=== PATIENT | male | born 1955 | race Caucasian/White ===

== ENCOUNTER 2019-09-12 06:00 | Day surgery (SDC) | payer MEDICARE ==
[2019-09-11 13:36] VITALS: BMI 25.0
--- NOTE | 2019-09-11 15:08 | HP ---
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 He has developed a right inguinal hernia over the last few weeks. It is bothersome to him. He has had an open left inguinal hernia repair many years ago. ALLERGIES: NONE. TOBACCO: None. ALCOHOL: Rarely. MEDICATIONS: 1. Crestor. 2. Amlodipine. 3. Carvedilol. 4. Flomax. 5. Finasteride. PAST SURGICAL HISTORY: Appendectomy, left inguinal hernia repair in [place], knee surgery bilaterally. REVIEW OF SYSTEMS: Ten-point noncontributory. PHYSICAL EXAMINATION: VITAL SIGNS: Weight 206 pounds, height 75 inches, blood pressure 142/90, pulse 53, temperature 97.5 degrees. HEAD, EARS, EYES, NOSE, AND THROAT: Unremarkable. LUNGS: Clear to auscultation. CARDIAC: Regular rate and rhythm without murmur or gallop. ABDOMEN: Soft, nontender, no masses. Scar in left groin from previous hernia repair. Testicles normal. Right groin hernia on standing, enlarged on Valsalva. EXTREMITIES: Unremarkable. ASSESSMENT AND PLAN: Right inguinal hernia. Recommend robot laparoscopic mesh repair outpatient. He understands risks of infection, bleeding, reoperation, testicular injury, recurrence of the hernia and consents. Job ID: [id number]
[2019-09-12] MEDS ORDERED: Famotidine/PF 20 mg/2ml Vial ONE (06:16)
[2019-09-12] MEDS ORDERED: Fentanyl 100 MCG/2 ML VIAL ONE ×2 (06:16→06:17)
[2019-09-12] MEDS ORDERED: Gabapentin 300 MG CAP ONE (06:25)
[2019-09-12] MEDS ORDERED: Acetaminophen 500 MG TAB ONE (06:25)
[2019-09-12] MEDS ORDERED: Ketorolac Tromethamine 30 MG/ML VIAL ONE ×2 (06:34→10:11)
[2019-09-12] MEDS ORDERED: Lidocaine 1% w/Epinephrine 1:100K 20 ML VIAL ONE (06:57)
[2019-09-12] MEDS ORDERED: Bupivacaine PF 0.5% 30 ML VIAL ONE (06:57)
[2019-09-12 07:07] LABS: #Basophils 0.1 thou/uL (0.0-0.2); #Eosinphils 0.2 thou/uL (0.0-0.7); #Monocytes 0.7 thou/uL (0.11-0.59); #Neutrophils 4.1 thou/uL (1.40-6.50); %Basophils 0.8 % (0.0-1.0); %Eosinophils 2.2 % (0.0-10.0); %Lymphocytes 28.2 % (21.0-51.0); %Monocytes 10.5 % (0.0-10.0); %Neutrophils 58.2 % (42.0-75.0); Hemoglobin 14.9 g/dL (14.0-18.0); Mean Corpuscular HGB CONC 34.5 g/dL (32.0-36.0); Mean Corpuscular Hemoglobin 30.1 pg (27.0-31.0); Mean Corpuscular Volume 87.1 fL (78.0-98.0); Mean Platelet Volume 8.8 fL (7.4-10.4); Platelet Count 210 thou/uL (130-400); RBC Distribution Width 12.3 % (11.5-14.5); Red Blood Cell (RBC) Count 4.95 mill/uL (4.70-6.10)
[2019-09-12 07:13] LABS: Anion Gap 11 mmol/L (10-20); BUN (Urea Nitrogen) 15 mg/dL (8.4-25.7); Calc. Creatinine Clearance 102 mL/min (70-130); Calcium 9.2 mg/dL (7.8-10.44); Carbon Dioxide 26 mmol/L (23-31); Chloride 109 mmol/L (98-107); Estimated GFR-MDRD 82; Glucose 111 mg/dL (80-115); Potassium 3.7 mmol/L (3.5-5.1); Sodium 142 mmol/L (136-145)
[2019-09-12] MEDS ORDERED: Lidocaine 1% PF 5 ML VIAL ONE (10:11)
[2019-09-12] MEDS ORDERED: Glycopyrrolate 0.2 MG/ML 5 ML SYRINGE ONE (10:11)
[2019-09-12] MEDS ORDERED: PROPOFOL 200 MG/20 ML VIAL ONE (10:11)
[2019-09-12] MEDS ORDERED: Metoclopramide HCl 10 MG/2 ML VIAL ONE (10:11)
[2019-09-12] MEDS ORDERED: Ondansetron PF 4 MG/2 ML Vial ONE (10:11)
[2019-09-12] MEDS ORDERED: EPHEDRINE 25 MG/5 ML SYRINGE ONE (10:11)
[2019-09-12] MEDS ORDERED: Rocuronium Bromide 10 MG/ML (10ML VIAL) ONE (10:11)
[2019-09-12] MEDS ORDERED: Dexamethasone 20 MG/5 ML VIAL ONE (10:11)
--- NOTE | 2019-09-12 10:44 | OP ---
DATE OF PROCEDURE: 09/12/2019 PREOPERATIVE DIAGNOSIS: Right inguinal hernia, indirect. POSTOPERATIVE DIAGNOSIS: Right inguinal hernia, indirect. PROCEDURE PERFORMED: Laparoscopic robotic repair of sliding right inguinal hernia using mesh Bard 3DMax large, right. ANESTHESIA: General, local with 0.5% Marcaine 30 mL, mixed with 1% Xylocaine with epinephrine 20 mL. DESCRIPTION OF PROCEDURE: The patient was taken to the operating room where under slight Trendelenburg positioning, Logan catheter was placed at the beginning of procedure and removed at the end. Abdomen was prepared with ChloraPrep and draped in routine fashion. Local anesthetic was infiltrated in the skin and subcutaneous tissue about the operative site. Left paramedian supraumbilical incision was made. Pneumoperitoneum to 15 mmHg was obtained with a Veress needle, and this was replaced with an 11 port. Right lateral abdomen and left lateral abdominal incision made and 8 mm port was placed under laparoscopic visualization. The robot was docked, positioned, and robotic inguinal hernia repair undertaken. There were adhesions from prior open appendectomy in the right lower quadrant incision. These omental adhesions were taken down from the abdominal wall. Peritoneal flap incised, dissected free from the midline to anterior superior iliac spine laterally right. Once flap was dissected free, the Scooby's ligament identified. Hernia sac dissected free from the cord structures for least 8 cm. A 3DMax Bard large mesh inserted, properly oriented, secured to Scooby ligament with 2-0 Vicryl and the anterior abdominal wall to the patient's right of the inferior epigastric vessels with 2-0 Vicryl. Good hemostasis noted. Good hernia repair appreciated. Peritoneal flap closed with continuous suture of #3-0 Stratafix. Pneumoperitoneum reduced. All instruments removed. A supraumbilical fascia anterior approximated with 0 Vicryl UR needle and skin incision with interrupted subdermal 4-0 Monocryl and [place] glue applied. Job ID: [id number]
--- NOTE | 2019-09-13 08:28 | EKG ---
Test Reason : PREOP Blood Pressure : / mmHG Vent. Rate : 055 BPM Atrial Rate : 055 BPM P-R Int : 172 ms QRS Dur : 112 ms QT Int : 476 ms P-R-T Axes : 038 055 044 degrees QTc Int : 455 ms Sinus bradycardia Otherwise normal ECG No previous ECGs available Confirmed by DR. Julieth CONTRERAS ([id number]) on 09/13/2019 8:27:42 AM Referred By: ASHWIN Confirmed By:DR. Julieth CONTRERAS
== END 2019-09-12 10:42 | disposition home or self-care (01) ==
LOC: SDC 06:00
PROVIDERS: ATTEND Specialist
PROC: 0YU54JZ Supplement Right Inguinal Region with Synthetic Substitute, Percutaneous Endoscopic Approach (ICD-10-PCS; principal; 2019-09-12)
DX: K40.90 Unilateral inguinal hernia, without obstruction or gangrene, not specified as recurrent (principal); I10 Essential (primary) hypertension; Z79.82 Long term (current) use of aspirin; Z79.899 Other long term (current) drug therapy; Z98.890 Other specified postprocedural states
CPT/HCPCS: 49650; 80048; 85025; 93005; C1781; 93010; J0690; J1100; J1885; J2001; J2405; J2704; J2765; J3010; S0020; S0028

== ENCOUNTER 2021-03-09 08:11 | Outpatient (CLI) | payer MEDICARE ==
[2021-03-09 10:16] LABS: Hemoglobin 14.1 g/dL (13.5-17.5); Mean Corpuscular HGB CONC 33.9 g/dL (32.0-36.0); Mean Corpuscular Hemoglobin 29.5 pg (27.0-33.0); Mean Platelet Volume 11.2 fl (7.4-10.4); Platelet Count 209 10x3/uL (150-450); RBC Distribution Width 13.1 % (11.5-14.5); Red Blood Cell (RBC) Count 4.78 10x6/uL (4.32-5.72); White Blood Cell (WBC) Count 6.7 10x3/uL (3.5-10.5)
[2021-03-09 10:25] LABS: Bilirubin Neg (Negative); Blood, Urine 10 (Negative); Clarity Clear (Clear); Glucose, Urine (Dipstick) Normal (Negative); Ketone, Urine Negative (Negative); Leukocyte Negative (Negative); Nitrite Negative (Negative); Protein, Urine (Dipstick) 15 mg/dl (Neg-Trace); Specific Gravity, Urine 1.025 (1.002-1.036); Urobilinogen Normal mg/dL (Less than 2)
[2021-03-09 10:32] LABS: PTT 25.6 sec (22.0-33.0); Prothrombin Time 10.9 sec (9.5-12.1)
[2021-03-09 10:47] LABS: Anion Gap 12 mmol/L (10-20); BUN (Urea Nitrogen) 21 mg/dL (8.4-25.7); Calc. Creatinine Clearance 0 mL/min (70-130); Calcium 9.6 mg/dL (7.8-10.44); Carbon Dioxide 25 mmol/L (23-31); Chloride 106 mmol/L (98-107); Glucose 112 mg/dL (80-115); Potassium 4.2 mmol/L (3.5-5.1); Sodium 139 mmol/L (136-145)
[2021-03-09 11:54] LABS: Bacteria/HPF Rare-Few HPF (None Seen); Mucous/LPF 2+ LPF (<2+); Squamous Epithelial None Seen HPF (0-3); WBC/HPF 0-3 HPF (0-3)
[2021-03-09 20:01] LABS: SARS-CoV-2 PCR by NAA Not Detected (NotDetected)
== END 2021-03-09 08:12 | disposition home or self-care (01) ==
LOC: LABBT 08:11
PROVIDERS: ATTEND Urology
DX: Z01.812 Encounter for preprocedural laboratory examination (principal); N40.0 Benign prostatic hyperplasia without lower urinary tract symptoms; Z20.822 Contact with and (suspected) exposure to COVID-19
CPT/HCPCS: 80048; 81001; 85027; 85610; 85730; 87086; U0003; U0005

== ENCOUNTER 2021-03-14 02:12 | Emergency (ER) | payer MEDICARE ==
[2021-03-14 03:47] LABS: Bilirubin Negative (Negative); Blood, Urine 3+ (Negative); Clarity Extra Turbid (Clear); Glucose, Urine (Dipstick) Normal (Negative); Ketone, Urine Negative (Negative); Leukocyte 75 Leu/uL (Negative); Nitrite Negative (Negative); Protein, Urine (Dipstick) 70 mg/dL (Neg-Trace); RBC/HPF Greater than 50 HPF (0-3); Specific Gravity, Urine 1.006 (1.002-1.036); Squamous Epithelial None Seen HPF (0-3); Urobilinogen Normal mg/dL (Less than 2); pH, Urine 7.5 (5.0-9.0)
[2021-03-14 03:58] LABS: Bacteria/HPF None Seen HPF (None Seen)
== END 2021-03-14 05:14 | disposition home or self-care (01) ==
LOC: ERS 02:12
DX: N40.1 Benign prostatic hyperplasia with lower urinary tract symptoms (principal); R33.8 Other retention of urine; R06.82 Tachypnea, not elsewhere classified; I10 Essential (primary) hypertension; E78.00 Pure hypercholesterolemia, unspecified
CPT/HCPCS: 51702; 81003; 81015; 87086

== ENCOUNTER 2021-03-18 03:26 | Emergency (ER) | payer MEDICARE ==
[2021-03-18 03:53] LABS: Bacteria/HPF None Seen HPF (None Seen); Bilirubin Negative (Negative); Blood, Urine 1+ (Negative); Clarity Clear (Clear); Glucose, Urine (Dipstick) Normal (Negative); Ketone, Urine Negative (Negative); Leukocyte Negative Leu/uL (Negative); Nitrite Negative (Negative); Protein, Urine (Dipstick) Negative (Neg-Trace); RBC/HPF 21-50 HPF (0-3); Specific Gravity, Urine 1.006 (1.002-1.036); Squamous Epithelial None Seen HPF (0-3); Urobilinogen Normal mg/dL (Less than 2); WBC/HPF 0-3 HPF (0-3); pH, Urine 7.5 (5.0-9.0)
== END 2021-03-18 05:11 | disposition left against medical advice (07) ==
LOC: ERS 03:26
DX: Z53.21 Procedure and treatment not carried out due to patient leaving prior to being seen by health care provider (principal)
CPT/HCPCS: 81003; 81015

== ENCOUNTER 2022-08-11 09:03 | Outpatient (CLI) | payer MEDICARE, OTHER | END 2022-08-11 09:04 | disposition home or self-care (01) | LOC: TBSIIMAG 09:03 | PROVIDERS: ATTEND Urology | DX: N40.0 Benign prostatic hyperplasia without lower urinary tract symptoms (principal); R97.20 Elevated prostate specific antigen [PSA]; Z80.42 Family history of malignant neoplasm of prostate | CPT/HCPCS: 72197 ==

== ENCOUNTER 2023-01-12 07:26 | Outpatient (CLI) | payer MEDICARE ==
[2023-01-12] MEDS ORDERED: Iopamidol 370 76% 100 ML VIAL ONE (12:45)
== END 2023-01-12 07:27 | disposition home or self-care (01) ==
LOC: BICCT 07:26
PROVIDERS: ATTEND Urology
DX: R31.9 Hematuria, unspecified (principal); N40.0 Benign prostatic hyperplasia without lower urinary tract symptoms; Q61.02 Congenital multiple renal cysts; K57.30 Diverticulosis of large intestine without perforation or abscess without bleeding
CPT/HCPCS: 74178; 82565

== ENCOUNTER 2023-03-30 12:36 | Outpatient (CLI) | payer MEDICARE ==
[2023-03-30 13:47] LABS: Bilirubin Neg (Negative); Blood, Urine 25 (Negative); Clarity Cloudy (Clear); Glucose, Urine (Dipstick) Normal (Negative); Ketone, Urine 5 mg/dL (Negative); Leukocyte 100 (Negative); Nitrite Negative (Negative); Protein, Urine (Dipstick) 30 mg/dl (Neg-Trace); Specific Gravity, Urine 1.025 (1.005-1.030); Urobilinogen Normal mg/dL (Less than 2)
[2023-03-30 13:56] LABS: Hematocrit 42.3 % (38.8-50.0); Hemoglobin 14.6 g/dL (13.5-17.5); Mean Corpuscular HGB CONC 34.5 g/dL (32.0-36.0); Mean Corpuscular Hemoglobin 29.9 pg (27.0-33.0); Mean Corpuscular Volume 86.7 fl (81.2-95.1); Mean Platelet Volume 11.1 fl (7.4-10.4); Platelet Count 205 10x3/uL (150-450); RBC Distribution Width 12.9 % (11.5-14.5); Red Blood Cell (RBC) Count 4.88 10x6/uL (4.32-5.72)
[2023-03-30 14:17] LABS: Bacteria/HPF 3+ HPF (None Seen); Squamous Epithelial 0-3 HPF (0-3)
[2023-03-30 14:18] LABS: Mucous/LPF 3+ LPF (<2+)
[2023-03-30 14:39] LABS: Prothrombin Time 10.4 sec (9.5-12.1)
[2023-03-30 14:46] LABS: Anion Gap 13 mmol/L (10-20); BUN (Urea Nitrogen) 19 mg/dL (8.4-25.7); Calc. Creatinine Clearance 0 mL/min (70-130); Calcium 9.7 mg/dL (7.8-10.44); Carbon Dioxide 28 mmol/L (23-31); Chloride 104 mmol/L (98-107); Estimated GFR 72; Glucose 101 mg/dL (80-115); Potassium 4.3 mmol/L (3.5-5.1); Sodium 141 mmol/L (136-145)
== END 2023-03-30 12:37 | disposition home or self-care (01) ==
LOC: LABBT 12:36
PROVIDERS: ATTEND Urology
DX: Z01.818 Encounter for other preprocedural examination (principal); Z12.5 Encounter for screening for malignant neoplasm of prostate; N40.0 Benign prostatic hyperplasia without lower urinary tract symptoms; R97.20 Elevated prostate specific antigen [PSA]; N28.1 Cyst of kidney, acquired; R31.0 Gross hematuria; N52.9 Male erectile dysfunction, unspecified; I10 Essential (primary) hypertension; Z98.890 Other specified postprocedural states; R35.1 Nocturia; Z87.898 Personal history of other specified conditions; Z80.42 Family history of malignant neoplasm of prostate
CPT/HCPCS: 80048; 81001; 85027; 85610; 85730; 87086; 93005; 93010